=== PATIENT | male | born 1990 | race Two or more races ===

== ENCOUNTER 2020-08-17 20:30 | Inpatient (IN) | payer MEDICAID, OTHER ==
[~2020-08-17] VITALS: Ht 180.3 cm; Wt 93.0 kg
[2020-08-17] MEDS ORDERED: ONDANSETRON HCL 4 MG/2 ML VIAL IV ONE (21:00)
[2020-08-17] MEDS ORDERED: MORPHINE SULFATE 4 MG/ML SYR/VIAL IV ONE (21:00)
[2020-08-17 22:12] LABS: Hematocrit 45.3 % (41.0-53.0); Hemoglobin 15.8 g/dL (13.5-17.5)
[2020-08-17 22:30] LABS: BUN/Creatinine Ratio 14.7; Calcium 8.6 mg/dL (8.5-10.1); Potassium 3.5 mmol/L (3.5-5.1)
[2020-08-17] MEDS ORDERED: MORPHINE SULFATE 10 MG/ML INJ 1ML SDV IV ONE (23:15)
[2020-08-17] MEDS: ONDANSETRON HCL 4 MG/2 ML VIAL IV ONE (23:39)
[2020-08-17] MEDS: MORPHINE SULF INJ 2 MG/ML SYRINGE 1ML IV ONE (23:40)
[2020-08-17] MEDS: MORPHINE SULFATE 4 MG/ML SYR/VIAL IV ONE (23:41)
[2020-08-18] MEDS: MORPHINE SULFATE 4 MG/ML SYR/VIAL IV ONE (01:34)
[2020-08-18] MEDS: ONDANSETRON HCL 4 MG/2 ML VIAL IV ONE (01:34)
[2020-08-18] MEDS: MORPHINE SULF INJ 2 MG/ML SYRINGE 1ML IV ONE (01:35)
[2020-08-18] MEDS ORDERED: MORPHINE SULF INJ 2 MG/ML SYRINGE 1ML IV PRN (04:45)
[2020-08-18] MEDS ORDERED: ONDANSETRON HCL 4 MG/2 ML VIAL IV PRN (04:45)
[2020-08-18] MEDS ORDERED: ACETAMINOPHEN 325 MG TAB PO PRN (04:45)
[2020-08-18] MEDS ORDERED: NITROGLYCERIN 0.4 MG SL TAB SL PRN (04:45)
[2020-08-18] MEDS: D5W/SOD CHLO 0.9% 1,000 ML IV SCH ×2 (07:04→18:55)
[2020-08-18] MEDS: MORPHINE SULFATE 4 MG/ML SYR/VIAL IV PRN ×4 (07:26→22:30)
[2020-08-18 08:00] VITALS: BP 110/59
[2020-08-18 08:26] LABS: Basophils # (auto) 0 10 ^3/uL (0-0.2); Basophils % (auto) 0.2 % (0.0-2.0); Eosinophils # (auto) 0.3 10 ^3/uL (0-0.8); Eosinophils % (auto) 4.3 % (0.0-7.0); Hematocrit 44.3 % (41.0-53.0); Hemoglobin 15.2 g/dL (13.5-17.5); Lymphocytes # (auto) 1.5 10 ^3/uL (0.4-5.4); Lymphocytes % (auto) 22.5 % (10.0-50.0); Mean Corpuscular Hemoglobin 28.5 pg (28.0-32.0); Mean Corpuscular Hgb Conc. 34.3 g/dL (32.0-36.0); Mean Corpuscular Volume 83.1 fL (80.0-100.0); Monocytes # (auto) 0.5 10 ^3/uL (0-1.3); Monocytes % (auto) 8.1 % (0.0-12.0); Neutrophils # (auto) 4.4 10 ^3/uL (1.6-8.6); Neutrophils % (auto) 64.9 % (37.0-80.0); Nucleated Red Blood Cells % 0.1 %; Platelet Count (auto) 163 10^3/uL (140-450); Red Blood Cells 5.32 10^6/uL (4.5-5.90); Red Cell Distribution Width 13.8 % (11.8-14.3); White Blood Cell 6.8 10^3/uL (4.4-10.8)
[2020-08-18 08:42] LABS: INR 1.04 (0.9-1.15)
[2020-08-18 08:53] LABS: Calcium 8.7 mg/dL (8.5-10.1); Potassium 3.7 mmol/L (3.5-5.1)
[2020-08-18 08:59] LABS: Albumin 3.5 g/dL (3.4-5.0); BUN/Creatinine Ratio 13.5; Bilirubin, Total 0.6 mg/dL (0.2-1.0); Total Protein 6.4 g/dL (6.4-8.2)
[2020-08-18] MEDS ORDERED: ENOXAPARIN SOD 40 MG/0.4 ML SYRINGE SC SCH (10:00)
[2020-08-18] MEDS: HYDROcodone-ACET 5/325MG TAB PO PRN ×2 (11:01→20:20)
[2020-08-18] MEDS: FAMOTIDINE (10MG/ML) 2ML VL IV SCH ×2 (11:49→22:30)
[2020-08-18 13:00] VITALS: BP 114/68
[2020-08-18 17:04] VITALS: BP 114/73
[2020-08-18] MEDS: HEPARIN SODIUM (PORCINE) 5000 UNITS/ML 1ML VIAL SC SCH ×2 (17:36→22:00)
[2020-08-19] MEDS: HYDROcodone-ACET 5/325MG TAB PO PRN ×4 (02:10→22:47)
[2020-08-19 05:00] VITALS: BP 117/70
[2020-08-19] MEDS: MORPHINE SULFATE 4 MG/ML SYR/VIAL IV PRN ×2 (05:13→22:37)
[2020-08-19 07:39] LABS: Basophils # (auto) 0 10 ^3/uL (0-0.2); Basophils % (auto) 0.5 % (0.0-2.0); Eosinophils # (auto) 0.3 10 ^3/uL (0-0.8); Eosinophils % (auto) 5.6 % (0.0-7.0); Hematocrit 45.2 % (41.0-53.0); Hemoglobin 15.3 g/dL (13.5-17.5); Lymphocytes # (auto) 1.4 10 ^3/uL (0.4-5.4); Mean Corpuscular Hemoglobin 28.4 pg (28.0-32.0); Mean Corpuscular Hgb Conc. 33.9 g/dL (32.0-36.0); Mean Corpuscular Volume 83.6 fL (80.0-100.0); Monocytes # (auto) 0.5 10 ^3/uL (0-1.3); Neutrophils # (auto) 3.7 10 ^3/uL (1.6-8.6); Neutrophils % (auto) 60.9 % (37.0-80.0); Nucleated Red Blood Cells % 0.1 %; Platelet Count (auto) 155 10^3/uL (140-450); Red Cell Distribution Width 13.4 % (11.8-14.3)
[2020-08-19 07:45] LABS: Albumin 3.4 g/dL (3.4-5.0); BUN/Creatinine Ratio 12.3; Calcium 8.4 mg/dL (8.5-10.1)
[2020-08-19 07:48] LABS: Bilirubin, Total 0.7 mg/dL (0.2-1.0); Total Protein 6.3 g/dL (6.4-8.2)
[2020-08-19 09:00] VITALS: BP 114/62
[2020-08-19] MEDS ORDERED: ceFAZolin 1GM/50ML 100 ML IV ONE (09:08)
[2020-08-19] MEDS ORDERED: EPINEPHrine HCL 1 MG/1 ML AMP ONE (09:13)
[2020-08-19] MEDS ORDERED: ROPIVACAINE 0.5% (5MG/ML) 20ML AMPULE IJ ONE (09:14)
[2020-08-19] MEDS ORDERED: fentaNYL CITRATE 5 ML ONE (09:37)
[2020-08-19] MEDS: HEPARIN SODIUM (PORCINE) 5000 UNITS/ML 1ML VIAL SC SCH ×2 (09:37→22:38)
[2020-08-19] MEDS: FAMOTIDINE (10MG/ML) 2ML VL IV SCH ×2 (09:37→22:37)
[2020-08-19] MEDS ORDERED: MIDAZOLAM HCL 1MG/1ML-2 ML VIAL ONE (09:37)
[2020-08-19] MEDS ORDERED: ROCURONIUM 10MG/ML 10ML VIAL IV ONE (09:59)
[2020-08-19] MEDS ORDERED: ONDANSETRON HCL 4 MG/2 ML VIAL ONE (10:39)
[2020-08-19] MEDS ORDERED: ONDANSETRON HCL 4 MG/2 ML VIAL IV PRN (11:45)
[2020-08-19] MEDS ORDERED: HYDROmorphone HCL 2 MG/ML VL IV PRN (11:45)
[2020-08-19] MEDS ORDERED: HYDROmorphone HCL 2 MG/ML VL ONE (11:55)
[2020-08-19] MEDS: HYDROmorphone HCL 2 MG/ML VL IV PRN ×2 (11:57→12:12)
[2020-08-19 12:37] VITALS: BP 121/55
[2020-08-19] MEDS: D5W/SOD CHLO 0.9% 1,000 ML IV SCH (12:59)
[2020-08-19] MEDS ORDERED: D5W/SOD CHLO 0.9% 1,000 ML IV SCH (14:45)
[2020-08-19 17:08] VITALS: BP 135/71
[2020-08-19 22:00] VITALS: BP 128/75
[2020-08-20] MEDS: MORPHINE SULFATE 4 MG/ML SYR/VIAL IV PRN (01:23)
[2020-08-20] MEDS: HYDROcodone-ACET 5/325MG TAB PO PRN ×3 (03:59→16:15)
[2020-08-20 05:00] VITALS: BP 146/85
[2020-08-20 07:46] LABS: Basophils # (auto) 0 10 ^3/uL (0-0.2); Basophils % (auto) 0.2 % (0.0-2.0); Eosinophils # (auto) 0.3 10 ^3/uL (0-0.8); Eosinophils % (auto) 4.1 % (0.0-7.0); Hematocrit 44.8 % (41.0-53.0); Hemoglobin 15.6 g/dL (13.5-17.5); Lymphocytes # (auto) 1.4 10 ^3/uL (0.4-5.4); Lymphocytes % (auto) 19.9 % (10.0-50.0); Mean Corpuscular Hemoglobin 28.8 pg (28.0-32.0); Mean Corpuscular Hgb Conc. 34.8 g/dL (32.0-36.0); Monocytes # (auto) 0.8 10 ^3/uL (0-1.3); Monocytes % (auto) 10.9 % (0.0-12.0); Neutrophils # (auto) 4.6 10 ^3/uL (1.6-8.6); Neutrophils % (auto) 64.9 % (37.0-80.0); Nucleated Red Blood Cells % 0.1 %; Platelet Count (auto) 151 10^3/uL (140-450); Red Cell Distribution Width 13.3 % (11.8-14.3)
[2020-08-20 08:07] LABS: Calcium 9.1 mg/dL (8.5-10.1)
[2020-08-20 08:11] LABS: BUN/Creatinine Ratio 10.6; Magnesium 2.5 mg/dL (1.6-2.6)
[2020-08-20 09:00] VITALS: BP 130/65
[2020-08-20] MEDS: FAMOTIDINE (10MG/ML) 2ML VL IV SCH (09:46)
[2020-08-20] MEDS: HEPARIN SODIUM (PORCINE) 5000 UNITS/ML 1ML VIAL SC SCH (10:46)
[2020-08-20 12:51] VITALS: BP 123/68
[2020-08-20 16:53] VITALS: BP 119/73
[2020-08-20 17:40] VITALS: BP 119/73
== END 2020-08-20 18:45 | disposition home or self-care (01) | DRG 315 ==
LOC: ER 20:30 → TELE 08-18 04:42 → TELE-EAST 08-18 08:30 → EAST 08-19 19:43 → TELE-EAST 08-19 20:44
PROVIDERS: ADMIT Nurse Practitioner Family; ATTEND Internal Medicine
PROC: 0PSJ04Z Reposition Left Radius with Internal Fixation Device, Open Approach (ICD-10-PCS; principal; 2020-08-19 09:34)
DX: S52.372A Galeazzi's fracture of left radius, initial encounter for closed fracture (principal); N17.0 Acute kidney failure with tubular necrosis; S52.332A Displaced oblique fracture of shaft of left radius, initial encounter for closed fracture; W10.8XXA Fall (on) (from) other stairs and steps, initial encounter; Y92.812 Truck as the place of occurrence of the external cause; Z20.822 Contact with and (suspected) exposure to COVID-19; Y93.89 Activity, other specified; Y99.8 Other external cause status
CPT/HCPCS: 36415; 71045; 73090; 73100; 76000; 80048; 80053; 83735; 85014; 85018; 85025; 85610; 85730; 86850; 86900; 86901; 87081; 87426; 96374; 96375; 96376; 99291; G0378; J0171; J0690; J2250; J2405; J3490